=== PATIENT | female | born 1975 | race Caucasian/White ===

== ENCOUNTER 2021-10-21 10:46 | Outpatient (CLI) | payer OTHER, SELFPAY ==
[2021-10-21 12:08] LABS: AST(SGOT) 13 U/L (15-37); Alanine Aminotransfer ALT/SGPT 24 U/L (13-56); Albumin, Serum 3.6 g/dL (3.2-5.0); Alkaline Phosphatase 59 U/L (45-117); BUN 12 mg/dL (7-18); BUN/Creat Ratio 14.4 RATIO (10-20); Calcium,Total 8.5 mg/dL (8.5-10.1); Chloride 109 mmol/L (98-107); Cholesterol 184 mg/dL (200); Creatinine, Serum 0.84 mg/dL (0.55-1.02); EST Glomerular Filtration Rate 77 mL/min (>60); Est Glom Filt Rate - Afr Amer 93 mL/min (>60); Globulin 3.5 g/dL (2.2-4.2); Glucose 99 mg/dL (74-106); Potassium 4.5 mmol/L (3.5-5.1); Protein, Total 7.1 g/dL (6.4-8.2); Sodium Level 138 mmol/L (136-145); Triglycerides 118 mg/dL
[2021-10-21 12:09] LABS: Anion Gap 3 (5-15); Free T3 2.3 pg/mL (2.18-3.98); High Density Lipoprotein 53 mg/dL; Very Low Density Lipoprotein 24 mg/dL (5-40)
[2021-10-23 09:04] LABS: Vitamin B12 163 pg/mL (211-911)
[2021-10-24 16:25] LABS: Thyroglobulin Antibody < 1.0 IU/mL (0.0-0.9); Thyroid Peroxidase AB 12 IU/mL (0-34)
== END 2021-10-21 23:59 | disposition home or self-care (01) ==
LOC: LAB 10:51
PROVIDERS: PCP Internal Medicine; Referring Provider Internal Medicine; Visit Provider Internal Medicine
DX: Z00.00 Encounter for general adult medical examination without abnormal findings (principal); E53.8 Deficiency of other specified B group vitamins; U09.9 Post COVID-19 condition, unspecified; R53.83 Other fatigue; L85.3 Xerosis cutis; R63.5 Abnormal weight gain
CPT/HCPCS: 36415; 80053; 80061; 82607; 84439; 84443; 84481; 86376; 86800